=== PATIENT | female | born 1960 ===

== ENCOUNTER 2024-03-24 13:20 | Inpatient (IN) | payer BC ==
[2024-03-25] MEDS ORDERED: LORazepam 2 MG/ML INJ IM PRN (16:09)
[2024-03-25] MEDS ORDERED: HALOPERIDOL LACTATE 5 MG/ML 1 ML VIAL IM PRN (16:09)
[2024-03-25] MEDS ORDERED: MAG HYDROX/AL HYDROX/SIMETH 355 ML BOTTLE PO PRN (16:09)
[2024-03-25] MEDS ORDERED: MAGNESIUM HYDROXIDE 2,400 MG/30 ML CUP PO PRN (16:09)
[2024-03-25] MEDS ORDERED: PROPRANOLOL 10 MG TAB PO PRN (18:23)
[2024-03-25] MEDS: OLANZapine 10 MG TAB PO SCH (20:18)
[2024-03-25] MEDS: METOPROLOL TARTRATE 25 MG TAB PO SCH (20:19)
[2024-03-25] MEDS: metFORMIN 500 MG TAB PO SCH (20:19)
[2024-03-25] MEDS: cloNIDine HCL 0.2 MG TAB PO SCH (21:32)
[2024-03-25] MEDS: GABAPENTIN 300 MG CAP PO SCH (21:32)
[2024-03-25] MEDS: PILOCARPINE 5 MG TAB PO SCH (22:36)
[2024-03-25] MEDS: MELATONIN 3 MG TABLET PO PRN (22:49)
--- NOTE | 2024-03-26 02:28 | P.PN ---
Progress Note - Text Progress Note Date: 03/26/24 Attempted to see the patient in the mental health unit on 03/25 at 2300. The patient refused to be seen or be evaluated.
--- NOTE | 2024-03-26 08:25 | P.HP ---
Psychiatric H&P - . H&P Date: 03/26/24 History & Physical: Allergies Allergy/AdvReac Type Severity Reaction Status Date / Time bupropion [From Wellbutrin] AdvReac Rapid Verified 03/25/24 16:09 Heart Rate Vital Signs Temp 98.2 F 03/25/24 17:42 Pulse 90 03/25/24 17:42 Resp 16 03/25/24 17:42 BP 155/79 03/25/24 17:42 Pulse Ox 96 03/25/24 17:30 FiO2 Intake & Output 03/25/24 03/26/24 03/26/24 18:59 06:59 18:59 Weight 89.5 kg 03/26/24 08:19 This is a psychiatric assessment on Joanna Umanzor who is a 63-year-old female and who was hospitalized after patient claims that she had taken an overdose Patient was laying in bed and was not a very good historian patient continued to keep her eyes closed and did not seem to be too interested Patient earlier had refused to see the golf stud riveter for her physical examination Patient reports that she took an overdose because she had a fight with her friend She denies that that romantically involved She states that she was also lonely that her daughter has found a relationship in [place] and that she has been lonely She does admit that she took about 30 pills but did not give the name of the medication she said that he was for depression She said that she was seeing somebody for the treatment Patient would not elaborate on any outpatient follow-up or any inpatient psychiatric treatments in the past She denies any alcohol or substance use Past history personal social history Could not be collected adequately due to patient's amotivation and noncompliance Patient most likely will be opening up as she developed some rapport with the staff as well as with the physician Mental status examination: Reveals a middle-aged female who is laying in bed and does not seem to be in any distress Patient continues to keep her eyes closed and was uncooperative Affect at this time remains flat Speech was clear coherent and relevant Thought processes are goal directed sequential and logical Patient denies any auditory or visual hallucinations She denies any suicidal or homicidal ideations mood could not be assessed adequately due to patient's uninvolvement in this interaction although she appears to be withdrawn and superficial Patient's formal and operational judgment and insight appears to be impaired Plan: The patient will be hospitalized on the unit for further evaluation and treatment Therapy will be focused on providing supportive care and improving her coping abilities with a multimodal treatment Patient also participated on the siddiqui activities individual milieu group OT RT PT and pharmacotherapy Approximate of stay would be 7 to 10 days Patient's current home medications includes gabapentin Losartan Metoprolol Olanzapine Oxcarbazepine Pilocarpine Propranolol And venlafaxine Will continue her current home medications at this time Curt Barbour MD Active Medications Generic Name Dose Route Start Last Admin Trade Name Freq PRN Reason Stop Dose Admin Acetaminophen 650 mg 03/25/24 16:09 Acetaminophen Tab 325 Mg Tab PO Q4HR PRN Mild Pain (Scale 1 to 3) Al Hydroxide/Mg Hydroxide 30 ml 03/25/24 16:09 Mag Hydrox/Al Hydrox/Simeth 355 Ml Bottle PO Q4HR PRN GI Upset Clonidine 0.2 mg 03/25/24 21:00 03/25/24 21:32 Clonidine Hcl 0.2 Mg Tab PO 0.2 mg HS SHALOM Administration Gabapentin 300 mg 03/25/24 21:00 03/25/24 21:32 Gabapentin 300 Mg Cap PO 300 mg BID SHALOM Administration Haloperidol 5 mg 03/25/24 16:09 Haloperidol 5 Mg Tab PO Q6HR PRN Agitation Haloperidol Lactate 5 mg 03/25/24 16:09 Haloperidol Lactate 5 Mg/Ml 1 Ml Vial IM Q6HR PRN Severe Agitation Hydrochlorothiazide 12.5 mg 03/26/24 09:00 Hydrochlorothiazide 12.5 Mg Cap PO DAILY SHALOM Lorazepam 1 mg 03/25/24 16:09 Lorazepam 2 Mg/Ml Inj IM Q6HR PRN Severe Agitation Lorazepam 1 mg 03/25/24 16:09 Lorazepam 1 Mg Tab PO Q6HR PRN Anxiety Losartan Potassium 100 mg 03/26/24 09:00 Losartan 50 Mg Tab PO DAILY SHALOM Magnesium Hydroxide 2,400 mg 03/25/24 16:09 Magnesium Hydroxide 2,400 Mg/30 Ml Cup PO DAILY PRN Constipation Melatonin 3 mg 03/25/24 18:05 03/25/24 22:49 Melatonin 3 Mg Tablet PO 3 mg HS PRN Administration Insomnia Metformin HCl 1,000 mg 03/25/24 21:00 03/25/24 20:19 Metformin 500 Mg Tab PO 1,000 mg HS SHALOM Administration Metoprolol Tartrate 25 mg 03/25/24 21:00 03/25/24 20:19 Metoprolol Tartrate 25 Mg Tab PO 25 mg BID SHALOM Administration Olanzapine 20 mg 03/25/24 21:00 03/25/24 20:18 Olanzapine 10 Mg Tab PO 20 mg HS SHALOM Administration Oxcarbazepine 300 mg 03/26/24 09:00 Oxcarbazepine 300 Mg Tab PO DAILY SHALOM Pilocarpine HCl 5 mg 03/25/24 22:00 03/25/24 22:36 Pilocarpine 5 Mg Tab PO 5 mg TID SHALOM Administration Propranolol HCl 10 mg 03/25/24 18:23 Propranolol 10 Mg Tab PO TID PRN Anxiety Ropinirole HCl 0.5 mg 03/25/24 21:00 03/25/24 21:33 Ropinirole Hcl 0.25 Mg Tab PO 0.5 mg HS SHALOM Administration Venlafaxine HCl 225 mg 03/26/24 09:00 Venlafaxine Hcl Er 75 Mg Cap PO DAILY SHALOM 03/26/24 08:24
[2024-03-26] MEDS: hydroCHLOROthiazide 12.5 MG CAP PO SCH (08:47)
[2024-03-26] MEDS: OXcarbazepine 300 MG TAB PO SCH (08:47)
[2024-03-26] MEDS: VENLAFAXINE HCL ER 75 MG CAP PO SCH (08:47)
[2024-03-26] MEDS: LOSARTAN 50 MG TAB PO SCH (08:47)
[2024-03-26] MEDS ORDERED: VENLAFAXINE HCL ER 150 MG CAP PO SCH (09:00)
[2024-03-26] MEDS: LORazepam 1 MG TAB PO PRN (19:53)
[2024-03-26] MEDS: haloperidoL 5 MG TAB PO PRN (19:53)
--- NOTE | 2024-03-27 03:24 | P.PN ---
Progress Note - Text Progress Note Date: 03/26/24 Attempted to see the patient in the mental health unit at 2200 on 03/26. The patient refused to be seen or be evaluated
[2024-03-27 14:22] VITALS: BMI 29.9
--- NOTE | 2024-03-27 16:39 | P.PN ---
Progress Note - Text Progress Note Date: 03/27/24 Follow-up Mediation Review Chief Complaint: I am very depressed and lonely Subjective: The patient noted that she feels very depressed and feels lonely. The patient is from her second 5 years ago. Her parents recently. Her one daughter lives in [place] but she has sporadic contact with her. Other daughter lives in [place]. The patient reports being depressed and afraid of taking showers. She has been admitted 8 times in past two years. The patient has not been attending the groups. The interaction with staff and peers is limited.. The patient is compliant with treatment recommendations. Leading questions: The patient admitted to Depression and Anxiety. Denied SI or HI. Denied symptoms consistent with psychosis Sleep and Appetite: Poor. Change in family/ living/job/financial/daily routine: No change. Change in medical condition: No change. Change in medications: No change. Side effects from Medications: Effexor increased to 300mg daily. Allergies: No change. Objective- MSE: Alert and attentive. Orientation times three. Dressed and Groomed: Appropriately. Pleasant and cooperative. Psychomotor Activity: Normal. Speech: Normal in tone, quality, and quantity. Mood: Depressed and anxious. Affect: Consistent with mood. SI or HI: None. Perceptual disturbance: None. Thought Content: No paranoia or other delusional thinking noted. Thought Process: Normal. Cognition: Intact Judgment and Insight: Poor. AIMS: Normal. Labs: Labs. Ordered. Diagnosis: Plan and Recommendations: Continue current Medications. Effexor 300 mg po daily. Monitor MS and side effects of medications and adjust medications accordingly. Provide supportive psychotherapy. The patient provided psychoeducation and advised The patient to attend siddiqui activities. CBC with Diff, CMP, TSH, Lipid Profile, HbA1c, EKG, Medication Consent with explanation of risk/benefits and side effects: Explained and obtained.
[2024-03-27 18:08] LABS: Basophils # (A) 0.1 k/uL (0-0.2); Basophils % (A) 1 %; Eosinophils # (A) 0.1 k/uL (0-0.7); Eosinophils % (A) 1 %; HCT 40.9 % (34.0-46.0); HGB 13.5 gm/dL (11.4-16.0); Lymphocytes # (A) 1.6 k/uL (1.0-4.8); Lymphocytes % (A) 17 %; MCH 31.4 pg (25.0-35.0); MCHC 32.9 g/dL (31.0-37.0); MCV 95.4 fL (80.0-100.0); Mean Platelet Volume 7.7; Monocytes # (A) 0.5 k/uL (0-1.0); Monocytes % (A) 5 %; Neutrophils # (A) 7.2 k/uL (1.3-7.7); Neutrophils % (A) 76 %; Platelet Count 352 k/uL (150-450); RBC 4.28 m/uL (3.80-5.40); RDW 13.1 % (11.5-15.5); WBC 9.5 k/uL (3.8-10.6)
[2024-03-27 18:16] LABS: ALT 15 U/L (4-34); AST 16 U/L (14-36); African American GFR (CKD) 77 (>60 ml/min/1.73 sqM); Albumin 3.8 g/dL (3.5-5.0); Alkaline Phosphatase 78 U/L (38-126); Anion Gap 7 mmol/L; Blood Urea Nitrogen 20 mg/dL (7-17); Calcium 9.1 mg/dL (8.4-10.2); Carbon Dioxide 23 mmol/L (22-30); Chloride 106 mmol/L (98-107); Glucose 109 mg/dL (74-99); Non-African American GFR(CKD) 67 (>60 ml/min/1.73 sqM); Sodium 136 mmol/L (137-145); Total Bilirubin 0.4 mg/dL (0.2-1.3); Total Protein 6.4 g/dL (6.3-8.2)
[2024-03-28 02:48] LABS: Chol/HDL Ratio 4.62 Ratio; LDL Cholesterol,Calculated 69.2 mg/dL (0.0-131.0)
[2024-03-28] MEDS: VENLAFAXINE HCL ER 75 MG CAP PO SCH (09:00)
--- NOTE | 2024-03-28 20:49 | P.PN ---
Progress Note - Text Progress Note Date: 03/28/24 Follow-up Mediation Review Chief Complaint: I am a little better. Subjective: The patient noted that she feels slightly better but still very depressed. She noted that she has some suicidal houghts now and then but is able to shake them off, She described the intensity of depression no better than the time she came her. The patient noted that she has been very tired, She indicated being in her room most of the time. She did not attend any groups. She has isolated herself. very depressed and feels lonely. The patient has not been attending the groups. The interaction with staff and peers is meager. The patient is compliant with treatment recommendations. Leading questions: The patient admitted to Depression and Anxiety. Denied SI or HI. Denied symptoms consistent with psychosis Sleep and Appetite: Poor. Change in family/ living/job/financial/daily routine: No change. Change in medical condition: No change. Change in medications: No change. Side effects from Medications: Effexor increased to 300mg daily. Allergies: No change. Objective- MSE: Alert and attentive. Orientation times three. Dressed and Groomed: Appropriately. Pleasant and cooperative. Psychomotor Activity: Normal. Speech: Normal in tone, quality, and quantity. Mood: Depressed and anxious. Affect: Consistent with mood. SI or HI: None. Perceptual disturbance: None. Thought Content: No paranoia or other delusional thinking noted. Thought Process: Normal. Cognition: Intact Judgment and Insight: Poor. AIMS: Normal. Labs: Labs. Ordered. Diagnosis: Plan and Recommendations: Continue current Medications. Effexor 300 mg po daily. Monitor MS and side effects of medications and adjust medications accordingly. Provide supportive psychotherapy. The patient provided psychoeducation and advised The patient to attend siddiqui activities. CBC with Diff, CMP, TSH, Lipid Profile, HbA1c, EKG, Medication Consent with explanation of risk/benefits and side effects: Explained and obtained.
--- NOTE | 2024-03-29 01:50 | P.CONS ---
History of Present Illness - Reason for Consult Consult date: 03/29/24 - History of Present Illness The patient is a 63-year-old female with a PMH of type II DM, hypertension, hyperlipidemia who presented to the emergency room with complaints of depression and suicidal ideation. The patient was admitted to the mental health unit where she was seen and evaluated. Patient notes that she has been feeling "lonely". She had no active complaints at the time of interview. Denied experiencing chest discomfort, shortness of breath, fever, chills, cough, nausea, vomiting, abdominal pain, diarrhea. Patient denied tobacco, alcohol, or substance use. Review of systems: Pertinent positives and negatives as discussed in HPI, a complete review of systems was performed and all other systems are negative. Physical examination: General: non toxic, no distress, appears at stated age, obese Derm: no unusual rashes/lesions, no unusual ecchymoses, warm, dry Head: atraumatic, normocephalic, symmetric Eyes: EOMI, no lid lag, anicteric sclera ENT: Nose and ears atraumatic, no thrush, no pharyngeal erythema Neck: trachea midline, supple Mouth: no lip lesion, mucus membranes moist Cardiovascular: S1S2 reg, no murmur, no edema Lungs: CTA bilateral, no rhonchi, no rales , no accessory muscle use Abdominal: soft, nontender to palpation, no guarding Ext: no gross muscle atrophy, no contractures, Neuro: No gross focal neuro deficits noted Psych: Alert, oriented, appropriate affect Assessment: Chronic conditions: Type II DM, hypertension, hyperlipidemia Depression and suicidal ideation Imaging: EKG reveals normal sinus rhythm at [address]/T wave changes noted as reviewed by me. Data Review: Laboratory evaluation reveals WBC count 9.5, hemoglobin 13.5, sodium 136, BUN 20, creatinine 0.93, glucose 109, HDL 36 Plan: Continue home medications including metformin, hydrochlorothiazide, losartan Defer management of depression and suicidal ideation to the primary psychiatry nadya wise Thank you for allowing us to participate in the care of this patient. We will follow peripherally. Do not hesitate to contact us with questions. Someone can be reached from the [facility] hospitalist group at all hours of the day at [phone]. Past Medical History Past Medical History: Hypertension History of Any Multi-Drug Resistant Organisms: None Reported Past Surgical History: Section Past Anesthesia/Blood Transfusion Reactions: No Reported Reaction Past Psychological History: Anxiety, Depression, PTSD Smoking Status: Never smoker Past Alcohol Use History: None Reported - Past Family History Father Family Medical History: Hyperlipidemia Medications and Allergies Home Medications Medication Instructions Recorded Confirmed Type Co-Q-10 (Unknown Dose) 1 cap PO DAILY 03/25/24 03/25/24 History Gabapentin [Neurontin] 300 mg PO BID 03/25/24 03/25/24 History Losartan Potassium [Cozaar] 100 mg PO DAILY 03/25/24 03/25/24 History Melatonin 3 mg PO HS PRN 03/25/24 03/25/24 History Metoprolol Tartrate [Lopressor] 25 mg PO BID 03/25/24 03/25/24 History OLANZapine [ZyPREXA] 20 mg PO HS 03/25/24 03/25/24 History OXcarbazepine [Trileptal] 300 mg PO DAILY 03/25/24 03/25/24 History Pilocarpine [Salagen] 5 mg PO TID 03/25/24 03/25/24 History Propranolol [Inderal] 10 mg PO TID PRN 03/25/24 03/25/24 History Venlafaxine HCl [Effexor XR] 75 mg PO DAILY 03/25/24 03/25/24 History Venlafaxine HCl [Effexor XR] 150 mg PO DAILY 03/25/24 03/25/24 History cloNIDine HCL [Catapres] 0.2 mg PO HS 03/25/24 03/25/24 History hydroCHLOROthiazide [Hydrodiuril] 12.5 mg PO DAILY 03/25/24 03/25/24 History metFORMIN HCL [Glucophage] 1,000 mg PO HS 03/25/24 03/25/24 History rOPINIRole HCL [Requip] 0.5 mg PO HS 03/25/24 03/25/24 History Allergies Allergy/AdvReac Type Severity Reaction Status Date / Time bupropion [From Wellbutrin] AdvReac Rapid Verified 03/25/24 16:09 Heart Rate Physical Exam Vitals: Vital Signs Temp Pulse Pulse Resp BP BP Pulse Ox 03/28/24 22:02 97.9 F 130 H 15 120/60 03/28/24 09:01 94.7 F L 125 H 143/75 98 03/28/24 06:42 97 F L 83 17 115/65 96 Results CBC & Chem 7: 03/27/24 17:31 03/27/24 17:31 Labs: Abnormal Lab Results - Last 24 Hours (Table) 03/27/24 Range/Units 17:31 Triglycerides 312.00 H (0.00-149.00) mg/dL VLDL Cholesterol, Calc 62.40 H (5.00-40.00) mg/dL HDL Cholesterol 36.40 L (40.00-60.00) mg/dL
--- NOTE | 2024-03-29 13:13 | P.PN ---
Progress Note - Text Progress Note Date: 03/29/24 Follow-up Mediation Review Chief Complaint: I am a little better. Subjective: The patient noted that she feels very depressed. The patient shows no desire to get out of bed. She been exhibiting symptoms of social withdrawal, isolation, no motivation, lack of energy, tiredness, negativistic thinking, hopelessness. She is having suicidal thoughts but the intensity is decreased. She has not been interacting with anybody on the unit.. She is not attending the groups. She indicated being in her room most of the time. She did not attend any groups. She has isolated herself. very depressed and feels lonely. The patient has not been attending the groups. The interaction with staff and peers is meager. The patient is compliant with medications. Leading questions: The patient admitted to Depression and Anxiety. Denied SI or HI. Denied symptoms consistent with psychosis Sleep and Appetite: Poor. Change in family/ living/job/financial/daily routine: No change. Change in medical condition: No change. Change in medications: No change. Side effects from Medications: None. Allergies: No change. Objective- MSE: Alert and attentive. Orientation times three. Dressed and Groomed: Appropriately. Pleasant and cooperative. Psychomotor Activity: Normal. Speech: Normal in tone, quality, and quantity. Mood: Depressed and anxious. Affect: Consistent with mood. SI or HI: None. Perceptual disturbance: None. Thought Content: No paranoia or other delusional thinking noted. Thought Process: Normal. Cognition: Intact Judgment and Insight: Poor. AIMS: Normal. Labs: Labs. Ordered. Diagnosis: Plan and Recommendations: Continue current Medications. Effexor 300 mg po daily. Monitor MS and side effects of medications and adjust medications accordingly. Provide supportive psychotherapy. The patient provided psychoeducation and advised The patient to attend siddiqui activities. CBC with Diff, CMP, TSH, Lipid Profile, HbA1c, EKG, Medication Consent with explanation of risk/benefits and side effects: Explained and obtained.
--- NOTE | 2024-03-30 15:21 | P.PN ---
Progress Note - Text Progress Note Date: 03/30/24 Follow-up Mediation Review Chief Complaint: I am a little better. Subjective: The patient noted that she feels very depressed. The patient was out in the hallway few times but her interaction with peers and staff remains meager. She attended two groups since yesterday. She remains in her room sleeping. shows no desire to get out of bed. She been exhibiting symptoms of social withdrawal, isolation, no motivation, lack of energy, tiredness, negativistic thinking, hopelessness. She is having suicidal thoughts but the intensity is decreased. indicated being in her room most of the time. She did not attend any groups. She has isolated herself. very depressed and feels lonely. The patient has not been attending the groups. The interaction with staff and peers is meager. The patient is compliant with medications. Leading questions: The patient admitted to Depression and Anxiety. Denied SI or HI. Denied symptoms consistent with psychosis Sleep and Appetite: Poor. Change in family/ living/job/financial/daily routine: No change. Change in medical condition: No change. Change in medications: Reduced Effexor to 225 mg in order to taper it. Reduce Xyprexa to 15 mg to reduce the excessive sedation. Side effects from Medications: Sedation. Allergies: No change. Objective- MSE: Alert and attentive. Orientation times three. Dressed and Groomed: Appropriately. Pleasant and cooperative. Psychomotor Activity: Normal. Speech: Normal in tone, quality, and quantity. Mood: Depressed and anxious. Affect: Consistent with mood. SI or HI: Admits to suicidal thoughts without plans. Perceptual disturbance: None. Thought Content: No paranoia or other delusional thinking noted. Thought Process: Normal. Cognition: Intact Judgment and Insight: Poor. AIMS: Normal. Labs: Labs. Ordered. Diagnosis: Plan and Recommendations: Continue current Medications. Decrease to Effexor 225 mg po daily. Decrease Zyprexa to 15 mg. Monitor MS and side effects of medications and adjust medications accordingly. Provide supportive psychotherapy. The patient provided psychoeducation and advised The patient to attend siddiqui activities. CBC with Diff, CMP, TSH, Lipid Profile, HbA1c, EKG, Medication Consent with explanation of risk/benefits and side effects: Explained and obtained.
[2024-03-30] MEDS: OLANZapine 7.5 MG TAB PO SCH (21:36)
[2024-03-31] MEDS: VENLAFAXINE HCL ER 75 MG CAP PO SCH (09:06)
--- NOTE | 2024-03-31 12:24 | P.PN ---
Progress Note - Text Progress Note Date: 03/31/24 Follow-up Mediation Review Chief Complaint: I was up and went to the morning group. Subjective: The patient continues to feel depressed. The patient was out in the hallway few times but her interaction with peers and staff remains meager. The patient noted that she intends to attend groups today. The patient noted that she did not have thoughts of hurting herself but does see anything to live for. She reports symptoms of social withdrawal, isolation, no motivation, lack of e nergy, tiredness, negativistic thinking, hopelessness. The patient attended one group this morning. She intends to go for other activities. The interaction with staff and peers is meager. The patient is compliant with medications. Leading questions: The patient admitted to Depression and Anxiety. Denied SI or HI. Denied symptoms consistent with psychosis Sleep and Appetite: Poor. Change in family/ living/job/financial/daily routine: No change. Change in medical condition: No change. Change in medications: Reduced Effexor to 225 mg in order to taper it off. Reduce Zyprexas to 15 mg to reduce the excessive sedation. Side effects from Medications: None. Allergies: No change. Objective- MSE: Alert and attentive. Orientation times three. Dressed and Groomed: Appropriately. Pleasant and cooperative. Psychomotor Activity: Normal. Speech: Normal in tone, quality, and quantity. Mood: Depressed and anxious. Affect: Consistent with mood. SI or HI: Admits to suicidal thoughts without plans. Perceptual disturbance: None. Thought Content: No paranoia or other delusional thinking noted. Thought Process: Normal. Cognition: Intact Judgment and Insight: Poor. AIMS: Normal. Labs: Labs. Ordered. Diagnosis: Plan and Recommendations: Continue current Medications. Decrease to Effexor 225 mg po daily. Decrease Zyprexa to 15 mg. Monitor MS and side effects of medications and adjust medications accordingly. Provide supportive psychotherapy. The patient provided psychoeducation and advised The patient to attend siddiqui activities. CBC with Diff, CMP, TSH, Lipid Profile, HbA1c, EKG, Medication Consent with explanation of risk/benefits and side effects: Explained and obtained.
--- NOTE | 2024-04-01 08:12 | P.PN ---
Subjective Progress Note Date: 04/01/24 Patient Name: Joanna Pierre Date of : 1960 Patient Status: Inpatient Attending Provider: Papa Grullon Date: 04/01/24 12:23 Initialization Date: 03/31/24 12:23 Follow-up Mediation Review Subjective: The patient continues to feel depressed. The patient was laying in bed and mostly mumbled answers She reports that she is ready to go home and time of discharge her When asked if she has made any progress she states that she is fine Patient did not elaborate on any of the questions asked The patient was out in the hallway few times but her interaction with peers and staff remains meager. The patient noted that she intends to attend groups today. The patient noted that she did not have thoughts of hurting herself but does see anything to live for. She reports symptoms of social withdrawal, isolation, no motivation, lack of energy, tiredness, negativistic thinking, hopelessness. The patient attended one group this morning. She intends to go for other activities. The interaction with staff and peers is meager. The patient is compliant with medications. Denied SI or HI. Denied symptoms consistent with psychosis Sleep and Appetite: Poor. Change in family/ living/job/financial/daily routine: No change. Change in medical condition: No change. Change in medications: Agree with Dr. Pandya treatment plan Effexor to 225 mg in order to taper it off. Zyprexas to 15 mg to reduce the excessive sedation. Side effects from Medications: None. Allergies: No change. Objective- MSE: Alert and attentive. Orientation times three. Dressed and Groomed: Appropriately. Pleasant and cooperative. Psychomotor Activity: Normal. Speech: Normal in tone, quality, and quantity. Mood: Depressed and anxious. Affect: Consistent with mood. SI or HI: Admits to suicidal thoughts without plans. Perceptual disturbance: None. Thought Content: No paranoia or other delusional thinking noted. Thought Process: Normal. Cognition: Intact Judgment and Insight: Poor. AIMS: Normal. Labs: Labs. Ordered. Diagnosis: Major depressive disorder with psychotic features Rule out bipolar disorder mixed type Plan and Recommendations: Continue current Medications. Decrease to Effexor 225 mg po daily. Decrease Zyprexa to 15 mg. Monitor MS and side effects of medications and adjust medications accordingly. Provide supportive psychotherapy. The patient provided psychoeducation and advised The patient to attend siddiqui activities. Medication Consent with explanation of risk/benefits and side effects: Explained and obtained. Curt Barbour MD Objective - Vital Signs Vital signs: Vital Signs Temp 97.8 F 03/31/24 21:56 Pulse 81 04/01/24 06:37 Resp 15 03/31/24 21:56 BP 129/72 04/01/24 06:37 Pulse Ox 98 03/30/24 21:07 FiO2 - Labs CBC & Chem 7: 03/27/24 17:31 03/27/24 17:31
[2024-04-01] MEDS: VENLAFAXINE HCL ER 150 MG CAP PO SCH (09:24)
[2024-04-01] MEDS: ACETAMINOPHEN TAB 325 MG TAB PO PRN (23:34)
--- NOTE | 2024-04-02 08:34 | P.PN ---
Subjective Progress Note Date: 04/02/24 Patient Name: Joanna Pierre Date of : 1960 Patient Status: Inpatient Attending Provider: Papa Grullon Date: 04/02/24 Initialization Date: 03/31/24 12:23 Follow-up Mediation Review Subjective: Patient responded immediately when approached today and stated that she was ready to go home She appears to be unreliable historian and appears to be mainly focused on her discharge The patient was laying in bed and mostly mumbled answers She reports that she is ready to go home and time of discharge her When asked if she has made any progress she states that she is fine Patient did not elaborate on any of the questions asked According to the chart review: The patient was out in the hallway few times but her interaction with peers and staff remains meager. The patient noted that she intends to attend groups today. The patient noted that she did not have thoughts of hurting herself but does see anything to live for. She reports symptoms of social withdrawal, isolation, no motivation, lack of energy, tiredness, negativistic thinking, hopelessness. The patient attended one group this morning. She intends to go for other activities. The interaction with staff and peers is meager. The patient is compliant with medications. Denied SI or HI. Denied symptoms consistent with psychosis Sleep and Appetite: Poor. Change in family/ living/job/financial/daily routine: No change. Change in medical condition: No change. Change in medications: Agree with Dr. Pandya treatment plan Effexor to 225 mg in order to taper it off. Zyprexas to 15 mg to reduce the excessive sedation. Side effects from Medications: None. Allergies: No change. Objective- MSE: Alert and attentive. Orientation times three. Dressed and Groomed: Appropriately. Pleasant and cooperative. Psychomotor Activity: Normal. Speech: Normal in tone, quality, and quantity. Mood: Depressed and anxious. Affect: Consistent with mood. SI or HI: Admits to suicidal thoughts without plans. Perceptual disturbance: None. Thought Content: No paranoia or other delusional thinking noted. Thought Process: Normal. Cognition: Intact Judgment and Insight: Poor. AIMS: Normal. Labs: Labs. Ordered. Diagnosis: Major depressive disorder with psychotic features Rule out bipolar disorder mixed type Plan and Recommendations: Continue current Medications. Encourage verbalization in dealing with her problem issues Effexor 225 mg po daily. Zyprexa to 15 mg. Monitor MS and side effects of medications and adjust medications accordingly. Provide supportive psychotherapy. The patient provided psychoeducation and advised The patient to attend siddiqui activities. Medication Consent with explanation of risk/benefits and side effects: Explained and obtained. Curt Barbour MD Objective - Vital Signs Vital signs: Vital Signs Temp 97.9 F 04/02/24 06:47 Pulse 75 04/02/24 06:47 Resp 18 04/02/24 06:47 BP 109/69 04/02/24 06:47 Pulse Ox 99 04/02/24 06:47 FiO2 - Labs CBC & Chem 7: 03/27/24 17:31 03/27/24 17:31
[2024-04-02] MEDS: VENLAFAXINE HCL ER 75 MG CAP PO SCH (09:22)
[2024-04-03] MEDS: hydrOXYzine HCL 25 MG TAB PO SCH (09:02)
[2024-04-03] MEDS: DESVENLAFAXINE SUCCINATE 50 MG TAB.ER.24H PO SCH ×2 (09:49→09:58)
--- NOTE | 2024-04-03 21:59 | P.PN ---
Progress Note - Text Progress Note Date: 04/03/24 Follow-up Mediation Review Chief Complaint: When can I be discharged. Subjective: The patient stays in her room most of the time. She has attended one group so far. The patient states that she feels bored and tired. The patient reports feeling depressed. She remains in her in her room and sleeps most of the time. She shows no motivation, or interest in getting better. She has been encouraged to participate in the treatment program but patient has failed to do so. She continues to show severe psychomotor retarded depression. She continues to have symptoms of social withdrawal, isolation, no motivation, lack of energy, tiredness, negativistic thinking, hopelessness. Discussed switching Zyprexa to Abilify. The patient agreed. The patient not participating in siddiqui milieu. The interaction with staff and peers is meager. The patient is compliant with medications. Leading questions: The patient admitted to Depression and Anxiety. Denied SI or HI. Denied symptoms consistent with psychosis Sleep and Appetite: Poor. Change in family/ living/job/financial/daily routine: No change. Change in medical condition: No change. Change in medications: Pristiq 50 mg po qam added to the treatment. Effexor discontinued. Side effects from Medications: None. Allergies: No change. Objective- MSE: Alert and attentive. Orientation times three. Dressed and Groomed: Appropriately. Pleasant and cooperative. Psychomotor Activity: Normal. Speech: Normal in tone, quality, and quantity. Mood: Depressed and anxious. Affect: Consistent with mood. SI or HI: Admits to suicidal thoughts without plans. Perceptual disturbance: None. Thought Content: No paranoia or other delusional thinking noted. Thought Process: Normal. Cognition: Intact Judgment and Insight: Poor. AIMS: Normal. Labs: No new labs. Diagnosis: No change. Plan and Recommendations: Continue current Medications. Continue current medications. Monitor MS and side effects and adjust the dose as needed. Provide supportive psychotherapy. The patient provided psychoeducation and advised The patient to attend siddiqui activities. Medication Consent with explanation of risk/benefits and side effects: Explained and obtained.
--- NOTE | 2024-04-04 20:41 | P.PN ---
Progress Note - Text Progress Note Date: 04/04/24 Follow-up Mediation Review Chief Complaint: I did not sleep good. Subjective: The patient was sleeping when approached. The patient noted that she is tired and wants to sleep. The was encouraged to get out of the siddiqui and go to the group. The patient did go to the morning group. She has been attending some groups but her participation is minimal. The patient still is not motivated, no interest. She is withdrawn and stays in room. She has not socialized with anyone on the siddiqui. She remains depressed and negative. She states that there is nothing to look forward to. She states that she is very lonely, which makes her very depressed. The patient not participating in siddiqui milieu. The interaction with staff and peers is meager. The patient is compliant with medications. Leading questions: The patient admitted to Depression and Anxiety. Denied SI or HI. Denied symptoms consistent with psychosis Sleep and Appetite: Poor. Change in family/ living/job/financial/daily routine: No change. Change in medical condition: No change. Change in medications: Abilify 2.5. mg added. Zyprexa Discontinued. Side effects from Medications: None. Allergies: No change. Objective- MSE: Alert and attentive. Orientation times three. Dressed and Groomed: Appropriately. Pleasant and cooperative. Psychomotor Activity: Normal. Speech: Normal in tone, quality, and quantity. Mood: Depressed and anxious. Affect: Consistent with mood. SI or HI: Admits to suicidal thoughts without plans. Perceptual disturbance: None. Thought Content: No paranoia or other delusional thinking noted. Thought Process: Normal. Cognition: Intact Judgment and Insight: Poor. AIMS: Normal. Labs: No new labs. Diagnosis: No change. Plan and Recommendations: Continue current Medications. Continue current medications. Monitor MS and side effects and adjust the dose as needed. Provide supportive psychotherapy. The patient provided psychoeducation and advised The patient to attend siddiqui activities. Medication Consent with explanation of risk/benefits and side effects: Explained and obtained.
[2024-04-04] MEDS: ARIPiprazole 5 MG TAB PO SCH (21:17)
--- NOTE | 2024-04-05 10:59 | P.PN ---
Progress Note - Text Progress Note Date: 04/05/24 Progress Note - Text Progress Note Date: 04/04/24 Follow-up Mediation Review Chief Complaint: I have a headache. Subjective: The patient was not sleeping today. She was alert and participated well in today,s med review. The patient was given Haldol last night. The note indicated that she had psychotic anxiety in stomach and head. The patient noted that she did not ask for Haldol but wanted something for anxiety. Encouraged patient to not take Haldol for sleep or for anxiety. The patient attended all the activities / groups yesterday. Her participation remains limited. The patient noted that her mood is better today. She stated that she always has some depression She intends to go back to work after discharge. The patients daughter is coming back from [facility]. She wants to see her and look at the pictures. The patient is participating in siddiqui milieu. The interaction with staff and peers is better. The patient is compliant with medications. Leading questions: The patient admitted to Depression and Anxiety. Denied SI or HI. Denied symptoms consistent with psychosis Sleep and Appetite: sleep is poor. Appetite is fine. Change in medical condition: No change. Change in medications: Abilify 5 mg added. Zyprexa Discontinued. Side effects from Medications: None. Objective- MSE: Alert and attentive. Orientation times three. Dressed and Groomed: Appropriately. Pleasant and cooperative. Psychomotor Activity: Normal. Speech: Normal in tone, quality, and quantity. Mood: Depressed and anxious- slightly improved. Affect: Consistent with mood. SI or HI: None. Perceptual disturbance: None. Thought Content: No paranoia or other delusional thinking noted. Thought Process: Normal. Cognition: Intact Judgment and Insight: Poor. AIMS: Normal. Labs: No new labs. Diagnosis: No change. Plan and Recommendations: Continue current Medications. Continue current medications. Increase Abilify to 5 mg po qhs. Monitor MS and side effects and adjust the dose as needed. Provide supportive psychotherapy. The patient provided psychoeducation and advised The patient to attend siddiqui activities. Medication Consent with explanation of risk/benefits and side effects: Explained and obtained.
[2024-04-05] MEDS: ARIPiprazole 5 MG TAB PO SCH (21:43)
--- NOTE | 2024-04-06 10:00 | P.PN ---
Progress Note - Text Progress Note Date: 04/06/24 Progress Note - Text Progress Note Date: 04/06/24 Follow-up Mediation Review Chief Complaint: I am feeling good. Subjective: The patient noted that she has been up and intends go to the groups. The patient was in good spirits. She had a meeting with her daughter. The patient noted that her daughter will come and pick her up when discharged. The patient talked about her other daughter is but is having some medical issues. The stated that she is depressed but this much depression is usual for her. The patient firmly denied any suicidal or homicidal thoughts. The patient wants to return work after discharge. She noted playing cards with other patients last evening. She did not get any prn medications last night. The patient is participating in siddiqui milieu. Her interaction with staff and peers is good. The patient is compliant with medications. Leading questions: The patient admitted to Depression and Anxiety. Denied SI or HI. Denied symptoms consistent with psychosis Sleep and Appetite: sleep has improved. Appetite is fine. Change in medical condition: No change. Change in medications: No change. Side effects from Medications: None. Objective- MSE: Alert and attentive. Orientation times three. Dressed and Groomed: Appropriately. Pleasant and cooperative. Psychomotor Activity: Normal. Speech: Normal in tone, quality, and quantity. Mood: Depressed and anxiety- improved to her baseline. Affect: Pleasant. SI or HI: None. Perceptual disturbance: None. Thought Content: No paranoia or other delusional thinking noted. Thought Process: Normal. Cognition: Intact Judgment and Insight: Poor. AIMS: Normal. Labs: No new labs. Diagnosis: No change. Plan and Recommendations: Continue current Medications. Continue current medications. Increase Abilify to 5 mg po qhs. Monitor MS and side effects and adjust the dose as needed. Provide supportive psychotherapy. The patient provided psychoeducation and advised The patient to attend siddiqui activities. Medication Consent with explanation of risk/benefits and side effects: Explained and obtained.
[2024-04-07] MEDS: DULoxetine HCL 30 MG CAPSULE.DR PO STA (09:51)
--- NOTE | 2024-04-07 14:19 | P.PN ---
Progress Note - Text Progress Note Date: 04/07/24 Follow-up Mediation Review Chief Complaint: I am not good. Subjective: The patient noted that she is having upset stomach and has not eaten her breakfast. She complaint of feeling depressed. The patient was crying most of this session. She brought the problems of her phobias about taking a shower and going to the stores. She feels very lonely. The patient was shaking and feeling anxious. The patient noted that this could be due to Pristiq. The patient was given support and reassurance. Alternate treatments were discussed. The patient consented for Cymbalta. The patient has been participating in sdidiqui milieu. Her interaction with staff and peers is good. The patient is compliant with medications. Leading questions: The patient admitted to Depression, Anxiety. Denied SI or HI. Denied symptoms consistent with psychosis Sleep and Appetite: sleep is irregular. Appetite is fine. Change in medical condition: No change. Change in medications: No change. Side effects from Medications: None. Objective- MSE: Alert and attentive. Orientation times three. Dressed and Groomed: Disheveled. Pleasant and cooperative. Psychomotor Activity: Normal. Speech: Normal in tone, quality, and quantity. Mood: Depressed and anxiety. Affect: sad, fearful, cried most the time. SI or HI: None. Perceptual disturbance: None. Thought Content: No paranoia or other delusional thinking noted. Thought Process: Normal. Cognition: Intact Judgment and Insight: Poor. AIMS: Normal. Labs: No new labs. Diagnosis: No change. Plan and Recommendations: Continue current Medications. Continue current medications. D/C Pristiq. Initiate Cymbalta 30 mg daily. Abilify increased to 7.5 mg po qhs. Monitor MS and side effects and adjust the dose as needed. Provide supportive psychotherapy. The patient provided psychoeducation and advised The patient to attend siddiqui activities. Medication Consent with explanation of risk/benefits and side effects: Explained and obtained.
[2024-04-07] MEDS: ARIPiprazole 5 MG TAB PO SCH (21:36)
--- NOTE | 2024-04-08 08:10 | P.PN ---
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 Subjective: Patient talks very softly but said that she was able to sleep appetite is good still feels sad no negative side effects on the medication she was on Pristiq and did not like the side effects of bothered her stomach she is on low-dose Cymbalta at this point does not seem to be bothering her stomach she also has Abilify at 7.5 and does not seem to be at all restless she denies active suicidality or homicidality or psychotic symptoms. Objective: Patient is very flat to sad affect slow moving slow responses soft- spoken she is oriented 3 self-care is minimal but adequate she was cooperative decreased eye contact. Assessment still quite depressed and is just starting on medications at hopeful ly she will tolerate mood take enough to work. She doesn't seem agitated so I didn't feel we needed to increase Abilify Plan no change in medications Objective - Vital Signs Vital signs: Vital Signs Temp 97.9 F 04/08/24 06:00 Pulse 89 04/08/24 06:00 Resp 17 04/08/24 06:00 BP 97/64 04/08/24 06:00 Pulse Ox 96 04/08/24 06:00 FiO2 - Labs CBC & Chem 7: 03/27/24 17:31 03/27/24 17:31
[2024-04-08] MEDS: DULoxetine HCL 30 MG CAPSULE.DR PO SCH (09:48)
--- NOTE | 2024-04-09 10:00 | P.PN ---
Subjective Progress Note Date: 04/09/24 Principal diagnosis: I was unable to locate a diagnosis on the chart after talking patient and reviewing notes it appears patient has major depression recurrent severe. Subjective: The patient had trouble with her stomach and nausea on Pristiq she shifted over to Cymbalta and seems to be having the same problem she did okay yesterday but today she's been throwing up and has stomach.. Patient talks very softly but said that she was able to sleep appetite is poor because of the nausea. She still feels sad, she also has Abilify at 7.5 and does not seem to be at all restless she denies active suicidality or homicidality or psychotic symptoms. She says that she doesn't have anxiety when she has is no energy and no drive capacity to enjoy. However she has tried Wellbutrin by itself without a serotonin medicine and made her more anxious tried mirtazapine for a day or 2 but she got to eating way too much and is already overweight. Objective: Patient is very flat to sad affect slow moving slow responses soft- spoken she is oriented 3 self-care is minimal but adequate she was cooperative decreased eye contact. Assessment: She is still quite depressed. She is feeling somewhat discouraged due to the reaction to her current medicine and having limited options for e nergy drive she has taken Adderall with benefit in the past patient is impossible getting by prescribe it or get refills Plan: We'll stop the Cymbalta because it seems to be bothering her stomach. P zaki what she needs is something that works on dopamine. She took Wellbutrin by itself 1 plan would be to get her on an SSRI make sure that she is calm and then and in the Wellbutrin. However this is arise almost all irritate her stomach could try Lexapro C she tolerated. Another plan would be to give her abilify to keep her calm and then adding the Wellbutrin which should be a faster". Another plan would either be to find someone who would be willing to consider Adderall outpatient or if her insurance would cover modafinil which would give her more energy and focus and can be refilled. Because of the possibilities are complex and require knowledge of the local support system I will leave that to the team at this point simply discontinue the Cymbalta. Objective - Vital Signs Vital signs: Vital Signs Temp 98.2 F 04/09/24 06:25 Pulse 89 04/09/24 06:25 Resp 14 04/09/24 06:25 BP 113/58 04/09/24 06:25 Pulse Ox 97 04/08/24 09:44 FiO2 - Labs CBC & Chem 7: 03/27/24 17:31 03/27/24 17:31
[2024-04-10 07:12] VITALS: BP 107/55; PULSE 92; RESP 16; TEMP 97.9
[2024-04-10] MEDS ORDERED: PROPRANOLOL 10 MG TAB PO PRN (09:22)
[2024-04-10] MEDS: DULoxetine HCL 30 MG CAPSULE.DR PO STA (09:38)
[2024-04-10] MEDS: SERTRALINE 25 MG TAB PO SCH (09:57)
--- NOTE | 2024-04-10 14:19 | P.DS ---
Providers Date of admission: 03/25/24 17:21 Expected date of discharge: 04/10/24 Attending physician: Papa Grullon MD Consults: 03/25/24 16:09 Consult Physician Routine Consulting Provider: Helga Barnes Consult Reason/Comments: H & P and medical care Do you want consulting provider notified?: Yes Primary care physician: Elie Alcantara - Discharge Diagnosis(es) (1) Major depressive disorder, recurrent severe without psychotic features Current Visit: Yes Status: Acute (2) Phobia, unspecified Current Visit: Yes Status: Acute Priority: Medium Hospital Course: Discharge Summary HPI: This is a psychiatric assessment on Joanna Umanzor who is a 63-year-old female and who was hospitalized after patient claims that she had taken an overdose Patient was lying in bed and was not a very good historian patient continued to keep her eyes closed and did not seem to be too interested Patient earlier had refused to see the soybean specialties cook for her physical examination Patient reports that she took an overdose because she had a fight with her friend She denies that that romantically involved She states that she was also lonely that her daughter has found a relationship in [place] and that she has been lonely She does admit that she took about 30 pills but did not give the name of the medication she said that he was for depression She said that she was seeing somebody for the treatment Patient would not elaborate on any outpatient follow-up or any inpatient psychiatric treatments in the past She denies any alcohol or substance use Past psychiatric history: The patient history of multiple psychiatric admissions. She has had 8 psychiatric admissions in past 2 years. All her admissions were for depression. She has h/o two suicidal attempts by over dose of pills. Medical History: HTN, Seizure disorder, restless leg syndrome. Personal social history Could not be collected adequately due to patient's amotivation and noncompliance Patient most likely will be opening as she developed some rapport with the staff as well as with the physician Hospital Course: After admission, the patient was involved in pharmacotherapy, siddiqui milieu, and individual psychodynamic psychotherapy. The patient was started on her home medications. The home medications were changed because of lack of efficacy. She was finally started placed on Zoloft, Abilify, Neurontin, Propranolol, and Hydroxyzine. The dose was titrated to obtain the desire effects. The patient tolerated medications well without any side effects. The patient was also involved in siddiqui activities. The patient attended the groups and participated well. The patient interacted with peers and staff well. The patient slowly started showing improvement. The hospital course was uneventful. The patient symptoms of depression, suicidal and homicidal ideations abated. The psychosis improved. The patient was stable to be discharged to out-patient care. The patient did not have any guns or weapons in possession at home. MSE: Reveals a middle-aged female who is lying in bed and does not seem to be in any distress Patient continues to keep her eyes closed and was uncooperative Affect currently remains flat Speech was clear coherent and relevant Thought processes are goal directed sequential and logical Patient denies any auditory or visual hallucinations She denies any suicidal or homicidal ideations mood could not be assessed adequately due to patient's uninvolvement in this interaction although she appears to be withdrawn and superficial Patient's formal and operational judgment and insight appears to be impaired Diagnosis: Major depressive Disorder severe, recurrent Phobia of shower, being in crowded places. Plan: The patient to be discharged today. The patient has attained good improvement since admission. He is stable to be followed as an outpatient. The patient is not suicidal or Homicidal. He does not pose any harm to self or others. The patient remains at a greater risk of self-harm or harm to others than general population on a chronic basis due to psychiatric illness and substance abuse. The patient will continue taking following medication post discharge. The importance of medication compliance and maintaining regular appointments at psychiatric out-pt and PCP clinic was explained and encouraged. The understood and agreed with the recommendations. bake room worker to arrange for and conduct family meeting to ensure safety upon discharge and answer any questions. The nursing home social worker to arrange for patients follow-up appointments at [facility] for psychiatric care along with follow-up with PCP. The patient provided psychoeducation. Advised to call 911 or go to nearest ED or call this hospital in case of acute worsening of symptomatology, severe side effects or having suicidal, homicidal thoughts and feeling unsafe at home. Patient Condition at Discharge: Stable Plan - Discharge Summary Discharge Rx Participant: Yes New Discharge Prescriptions: New Propranolol [Inderal] 10 mg PO DAILY PRN 15 Days #15 tab PRN Reason: anxiety Sertraline [Zoloft] 25 mg PO DAILY 15 Days #15 tab ARIPiprazole [Abilify] 7.5 mg PO HS 15 Days #22 tab hydrOXYzine HCL [Atarax] 25 mg PO TID 15 Days #45 tab Continue rOPINIRole HCL [Requip] 0.5 mg PO HS metFORMIN HCL [Glucophage] 1,000 mg PO HS hydroCHLOROthiazide [Hydrodiuril] 12.5 mg PO DAILY Propranolol [Inderal] 10 mg PO TID PRN PRN Reason: Anxiety Pilocarpine [Salagen] 5 mg PO TID OLANZapine [ZyPREXA] 20 mg PO HS cloNIDine HCL [Catapres] 0.2 mg PO HS Losartan Potassium [Cozaar] 100 mg PO DAILY Co-Q-10 (Unknown Dose) 1 cap PO DAILY Gabapentin [Neurontin] 300 mg PO BID OXcarbazepine [Trileptal] 300 mg PO DAILY Metoprolol Tartrate [Lopressor] 25 mg PO BID Melatonin 3 mg PO HS PRN PRN Reason: Insomnia Discontinued Venlafaxine HCl [Effexor XR] 75 mg PO DAILY Venlafaxine HCl [Effexor XR] 150 mg PO DAILY Discharge Medication List Co-Q-10 (Unknown Dose) 1 cap PO DAILY 03/25/24 [History] Gabapentin [Neurontin] 300 mg PO BID 03/25/24 [History] Losartan Potassium [Cozaar] 100 mg PO DAILY 03/25/24 [History] Melatonin 3 mg PO HS PRN 03/25/24 [History] Metoprolol Tartrate [Lopressor] 25 mg PO BID 03/25/24 [History] OLANZapine [ZyPREXA] 20 mg PO HS 03/25/24 [History] OXcarbazepine [Trileptal] 300 mg PO DAILY 03/25/24 [History] Pilocarpine [Salagen] 5 mg PO TID 03/25/24 [History] Propranolol [Inderal] 10 mg PO TID PRN 03/25/24 [History] cloNIDine HCL [Catapres] 0.2 mg PO HS 03/25/24 [History] hydroCHLOROthiazide [Hydrodiuril] 12.5 mg PO DAILY 03/25/24 [History] metFORMIN HCL [Glucophage] 1,000 mg PO HS 03/25/24 [History] rOPINIRole HCL [Requip] 0.5 mg PO HS 03/25/24 [History] ARIPiprazole [Abilify] 7.5 mg PO HS 15 Days #22 tab 04/10/24 [Rx] Propranolol [Inderal] 10 mg PO DAILY PRN 15 Days #15 tab 04/10/24 [Rx] Sertraline [Zoloft] 25 mg PO DAILY 15 Days #15 tab 04/10/24 [Rx] hydrOXYzine HCL [Atarax] 25 mg PO TID 15 Days #45 tab 04/10/24 [Rx] Follow up Appointment(s)/Referral(s): Rashmi Martinez [Other] - 04/13/24 8:30 am (04/13 @ 08:30 with Ned therapist virtual ) [employer] [Other] - As Needed ([phone] ext [phone] [facility] through [employer]. Call if you need any assistance with aftercare and resources.) [facility] [NON-STAFF] - 1 Week Patient Instructions/Handouts: Depression (DC) Activity/Diet/Wound Care/Special Instructions: Avoid the use of street drugs and alcohol. Take all medications as prescribed. When you are in need of refills on your medications, please contact your medical provider and/or outpatient psychiatrist/provider to have this done. Please go to your scheduled outpatient appointment for aftercare treatment. If symptoms return or become worse, call the crisis line at and/or go to the nearest emergency room for evaluation. National Suicide Hotline 988 Discharge Disposition: HOME SELF-CARE
== END 2024-04-10 14:15 | disposition home or self-care (01) | DRG 885 ==
LOC: 3MHU 03-25 17:21
PROVIDERS: ADMIT Psychiatry & Neurology Psychiatry; ATTEND Psychiatry & Neurology Psychiatry
DX: F33.2 Major depressive disorder, recurrent severe without psychotic features (principal); R45.851 Suicidal ideations; E11.9 Type 2 diabetes mellitus without complications; G40.909 Epilepsy, unspecified, not intractable, without status epilepticus; I10 Essential (primary) hypertension; G25.81 Restless legs syndrome; Z28.310 Unvaccinated for COVID-19; F40.9 Phobic anxiety disorder, unspecified; F43.10 Post-traumatic stress disorder, unspecified; E78.5 Hyperlipidemia, unspecified; G47.00 Insomnia, unspecified; K59.00 Constipation, unspecified; E66.3 Overweight; R51.9 Headache, unspecified; Z91.199 Patient's noncompliance with other medical treatment and regimen due to unspecified reason; Z79.84 Long term (current) use of oral hypoglycemic drugs; Z79.899 Other long term (current) drug therapy; Z88.8 Allergy status to other drugs, medicaments and biological substances
CPT/HCPCS: 80053; 80061; 83036; 84443; 85025; 93005